=== PATIENT | male | born 1965 | race Caucasian/White ===

== ENCOUNTER 2017-11-10 15:26 | Emergency (ER) | payer OTHER ==
[2017-11-10] MEDS: LIDOCAINE 1% (MDV) 20 ML INJ SC (17:30)
[2017-11-10] MEDS: ONDANSETRON 4 MG INJ IV (17:33)
[2017-11-10] MEDS: SOD CHLORIDE 0.9% 1,000 ML IV (17:34)
[2017-11-10] MEDS: HYDROmorphONE 1 MG/5 ML IV SYRINGE IV (17:34)
[2017-11-10 17:40] LABS: ADD MAN DIFF? NO
[2017-11-10 17:41] LABS: BASOPHILS % 0.3 % (0.0-2.0); EOSINOPHILS % 0.3 % (0.0-7.0); HEMATOCRIT 41.4 % (42.0-52.0); HEMOGLOBIN 13.6 g/dl (14.0-18.0); LYMPHOCYTES # 2.6 10^3/ul (0.8-2.9); LYMPHOCYTES % 22.4 % (15.0-51.0); MEAN CORPUSCULAR HEMOGLOBIN 28.5 pg (29.0-33.0); MEAN CORPUSCULAR HGB CONC 32.9 g/dl (32.0-37.0); MEAN CORPUSCULAR VOLUME 86.6 fl (82.0-101.0); MEAN PLATELET VOLUME 9.5 fl (7.4-10.4); MONOCYTE # 0.8 10^3/ul (0.3-0.9); MONOCYTES % 7.2 % (0.0-11.0); NEUTROPHILS % 69.5 % (39.0-77.0); PLATELET COUNT 335 10^3/UL (140-415); RED BLOOD COUNT 4.78 10^6/ul (4.70-6.10); RED CELL DISTRIBUTION WIDTH 14.4 % (11.5-14.5)
[2017-11-10 17:41] LABS: WHITE BLOOD COUNT 11.5 10^3/ul (4.8-10.8)
[2017-11-10] MEDS ORDERED: LIDOCAINE 1% (MDV) 10 ML INJ INJ (18:00)
[2017-11-10 18:01] LABS: ANION GAP 13 (8-16); BLOOD UREA NITROGEN 19 mg/dl (7-20); CALCIUM 9.7 mg/dl (8.4-10.2); CARBON DIOXIDE 31 mmol/L (21-31); CHLORIDE 105 mmol/L (97-110); CREATININE 0.75 mg/dl (0.61-1.24); GLUCOSE 85 mg/dl (70-220); POTASSIUM 3.9 mmol/L (3.5-5.1); SODIUM 145 mmol/L (135-144)
[2017-11-10 18:08] LABS: PROTIME 12.2 Sec (11.9-14.9)
[2017-11-10 18:19] LABS: TROPONIN-I < 0.012 ng/ml (0.00-0.12)
[2017-11-10 18:30] LABS: PARTIAL THROMBOPLASTIN TIME 28.5 Sec (25.0-35.0)
[2017-11-10] MEDS: CEFTRIAXONE 1 GM/50 ML (PMX) 50 ML IVPB (19:11)
== END 2017-11-10 19:43 | disposition home or self-care (01) ==
LOC: FTE 15:26 → E/R 19:43
DX: N47.2 Paraphimosis (principal); F17.210 Nicotine dependence, cigarettes, uncomplicated; R07.9 Chest pain, unspecified
CPT/HCPCS: 36415; 71045; 80048; 84484; 85025; 85610; 85730; 93005; 96374; 96375; 99291-25

== ENCOUNTER 2019-02-17 11:22 | Day surgery (SDC) | payer OTHER ==
[~2019-02-17 11:22] MED LIST: CEFAZOLIN 2 GM/50 ML (PMX) 50 ML IVPB
[2019-02-17] MEDS ORDERED: GLYCOPYRROLATE 0.4 MG INJ (12:47)
[2019-02-17] MEDS ORDERED: ROCURONIUM 50 MG INJ (12:47)
[2019-02-17] MEDS ORDERED: SUCCINYLCHOLINE CHLORIDE 100 MG/5 ML SYG IV (12:47)
[2019-02-17] MEDS ORDERED: PROPOFOL 20 ML (12:47)
[2019-02-17] MEDS ORDERED: CEFAZOLIN 1 GM INJ (12:47)
[2019-02-17] MEDS ORDERED: LIDOCAINE 100 MG SYRINGE (12:47)
[2019-02-17] MEDS ORDERED: ONDANSETRON 4 MG INJ (12:48)
[2019-02-17] MEDS ORDERED: METOCLOPRAMIDE 10 MG INJ (12:48)
[2019-02-17] MEDS ORDERED: FENTAnyl 50 MCG/ML VIAL ×2 (12:48→13:36)
[2019-02-17] MEDS ORDERED: FAMOTIDINE 20 MG INJ (12:48)
[2019-02-17] MEDS ORDERED: MEPERIDINE 25 MG INJ IV (13:00)
[2019-02-17] MEDS ORDERED: METOCLOPRAMIDE 10 MG INJ IV (13:00)
[2019-02-17] MEDS ORDERED: HYDROmorphONE 1 MG/5 ML IV SYRINGE IV ×3 (13:00)
[2019-02-17] MEDS ORDERED: DIPHENHYDRAMINE 50 MG INJ IV (13:00)
[2019-02-17] MEDS ORDERED: FENTAnyl 50 MCG/ML VIAL IV ×3 (13:00)
[2019-02-17] MEDS ORDERED: ONDANSETRON 4 MG INJ IV (13:00)
[2019-02-17] MEDS ORDERED: ALBUTEROL 0.083% (NEB) 2.5 MG/3 ML AMP HHN (13:00)
[2019-02-17] MEDS ORDERED: SUGAMMADEX SODIUM 200 MG/2 ML VIAL IV (13:41)
[2019-02-17] MEDS: BUPIVACAINE 0.5% (SDV) 30 ML INJ (13:59)
[2019-02-17] MEDS ORDERED: HYDROCODONE/APAP (5/325) TAB PO (14:00)
== END 2019-02-17 15:26 | disposition home or self-care (01) ==
LOC: SDS 11:22
DX: N47.1 Phimosis (principal); N48.1 Balanitis; K21.9 Gastro-esophageal reflux disease without esophagitis; Z87.891 Personal history of nicotine dependence
CPT/HCPCS: 54161; 88304